=== PATIENT | male | born 1970 | race Caucasian/White ===

== ENCOUNTER 2023-11-24 08:55 | Outpatient (CLI) | payer BC, SELFPAY ==
--- NOTE | 2023-11-24 | ECG_ITS ---
Measurements Intervals [place] Rate: 69 P: 67 MT: 241 QRS: 82 QRSD: 106 T: 49 QT: 398 QTc: 427 Interpretive Statements SINUS RHYTHM WITH FIRST DEGREE AV BLOCK BORDERLINE ECG NO PREVIOUS ECG AVAILABLE FOR COMPARISON Electronically Signed On 11-24-2023 16:36:54 CDT by Severo Mathur D.O.
== END 2023-11-24 08:56 | disposition home or self-care (01) ==
PROVIDERS: PCP Family Medicine; Visit Provider Nurse Practitioner
DX: Z01.818 Encounter for other preprocedural examination (principal); I44.0 Atrioventricular block, first degree
CPT/HCPCS: 93005

== ENCOUNTER 2024-12-22 22:12 | Emergency (ER) | payer BC, SELFPAY ==
--- NOTE | ~2024-12-22 | CT_ITS ---
CT ANGIOGRAM NECK AND HEAD History: Painless vision loss. Technique: Axial noncontrast imaging of the brain was performed. Serial spiral axial images through t he head and neck were then obtained during arterial phase IV injection of 100 cc of Omnipaque 350. 3- D postprocessing and MIP images were then reconstructed on the remote workstation. Dose reduction kathie hnique was used on this scan by utilizing automated exposure control and iterative reconstruction kathie hnique. The dose-length product (DLP) was 1805.85 mGy-cm. CTA neck findings: Bilateral vertebral arteries are patent. Bilateral common carotid, internal carot id, external carotid arteries are patent. No large vessel occlusion or stenosis. No aneurysm. The pro ximal right internal carotid artery demonstrates 0% stenosis relative to the normal distal artery lum en diameter. The proximal left internal carotid artery demonstrates 0% stenosis relative to the david l distal artery lumen diameter. Extensive mediastinal lymphadenopathy noted, partially imaged. CTA head findings: Distal vertebral arteries, basilar artery, and posterior cerebral arteries are pat ent. Distal internal carotid arteries, middle cerebral arteries, and anterior cerebral arteries are p atent. No large vessel occlusion or stenosis. No aneurysm. Axial noncontrast imaging of the brain is unremarkable. No acute infarct, intracranial hemorrhage, or mass lesion seen. No mass effect or midline shift. Oliveros-white differentiation intact. The ventricles and subarachnoid spaces are nondilated. Paranasal sinuses and mastoid air cells are clear. Calvarium intact. Impression: No significant vascular abnormality seen. Extensive mediastinal lymphadenopathy, nonspecific. Correlate for sarcoid, other inflammatory/reactiv e lymph nodes, versus any possibility of lymphoma or other metastatic disease. Reviewed, dictated and finalized at location . Impression: No significant vascular abnormality seen. Extensive mediastinal lymphadenopathy, nonspecific. Correlate for sarcoid, othe r inflammatory/reactive lymph nodes, versus any possibility of lymphoma or othe r metastatic disease.
--- OUTSIDE RECORDS SUMMARY | 2024-12-22 22:14 | XMS_ITS | Continuity of Care Document ---
Author Name [facility] Organization [facility] Care Team Providers Care Baseball Coach Name Role Phone [facility] Unavailable Unavailable Encounters Combined list of: 1) Encounters from Department of Veterans Affairs facilities going backup to the last 18 months, not all [facility] inpatient encounters are included; 2) Encounters from the Department of Defense facilities going backup to 280 months. Location Location Details Encounter Type Encounter Number Reason For Visit Attending Provider ADM Date DC Date Status Disposition Source [facility] Outpatient Encounter [id number] 01/11 [facility]
[2024-12-22 22:16] VITALS: BP 126/73; PULSE 72; RESP 16; TEMP 36.6; O2SAT 98
[2024-12-23] VITALS (22 sets, daily range): BP systolic 122–154; BP diastolic 76–90; PULSE 68; RESP 16; TEMP 36.6; O2SAT 96–100
--- NOTE | 2024-12-23 01:57 | ECG_ITS ---
Test Date: 2024-12-23 02:08:17 Measurements Intervals [place] Rate: 62 P: 26 SC: 233 QRS: 77 QRSD: 101 T: 52 QT: 412 QTc: 419 Interpretive Statements SINUS RHYTHM WITH FIRST DEGREE AV BLOCK BORDERLINE ECG No previous ECG available for comparison Electronically Signed On 12-23-2024 06:11:29 CDT by Severo Mathur D.O.
[2024-12-23 02:11] LABS: Basophils Absolute Auto 0.1 K/mm3 (0.0-0.1); Basophils Percent Auto 1.3 % (0.2-1.2); Eosinophils Absolute Auto 0.1 K/mm3 (0-0.3); Eosinophils Percent Auto 2.1 % (0-4.4); Hematocrit 39.1 % (42.0-52.0); Hemoglobin 13.5 g/dL (14.0-18.0); Immature Granulocyte Absolute 0.01 K/mm3 (0.00-0.031); Immature Granulocyte Percent A 0.2 % (0-0.5); Lymphocytes Percent Auto 19.1 % (18.3-44.2); Mean Corpuscular HGB Conc 34.5 g/dl (32-36); Mean Corpuscular Hemoglobin 29.7 pg (26-34); Mean Corpuscular Volume 85.9 fl (80-100); Mean Platelet Volume 8.6 fl (7.4-10.4); Monocytes Absolute Auto 0.6 K/mm3 (0.1-0.6); Monocytes Percent Auto 11.1 % (2.6-8.5); Neutrophils Absolute Auto 3.5 K/mm3 (1.3-6.7); Neutrophils Percent Auto 66.2 % (45.5-73.1); Platelet Count Result 191 k/mm3 (150-375); Red Blood Count 4.55 M/mm3 (4.6-6.20); Red Cell Distribution Width 12.3 % (11.5-14.5); White Blood Count 5.2 K/mm3 (4.5-10.0)
--- NOTE | 2024-12-23 02:16 | ED_ITS ---
HPI - Eye Problem General Chief complaint: Eye Problems Stated complaint: lost vision in left eye Time Seen by Provider: 12/23/24 01:53 History of Present Illness HPI Narrative: 54-year-old male with no pertinent past medical history presenting to the emergency depart with transient vision loss in his left eye. Patient was mowing grass at about 6:30 p.m. when he knows that his left eye completely lost vision for a brief period of time. Over the span of 15 minutes he regained vision is left eye and describes a curtain being drawn up back open and now he has full vision. This has never happened before. 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 Denies any fever, chills, nausea, vomiting. No trauma or injury. No foreign body sensation in the eye. No pain with extraocular movements. Was otherwise in his normal state of health. Related Data Allergies Allergy/AdvReac Type Severity Reaction Status Date / Time aspirin Allergy Unknown Vomiting Verified 12/22/24 22:16 Review of Systems 2 Review of Systems: As reviewed above in HPI Exam 2 Narrative: GENERAL: [Well-appearing, well-nourished, and in no acute distress.] HEAD: [Normocephalic, atraumatic.] EYES: [PERRLA and EOMI.] ENT: Nares clear, no rhinorrhea or epistaxis. Mucous membranes moist. NECK: Supple. CHEST: [Clear to auscultation. No respiratory distress.] HEART: [Regular rate and rhythm]. No murmur heard. [Normal peripheral pulses.] ABDOMEN: [Soft, nondistended], [nontender], [No rigidity or guarding] EXTREMITIES: Normal range of motion. [No edema.] SKIN: Warm, dry, no rash. NEURO: [No focal deficits]. Alert and oriented [x3.] PSYCH: [Normal mood and affect.] Course Vital Signs Vital signs: Vital Signs Temperature 36.6 C 12/22/24 22:16 Pulse Rate 72 12/22/24 22:16 Respiratory Rate 16 12/22/24 22:16 Blood Pressure 126/73 12/22/24 22:16 Pulse Oximetry 98 12/22/24 22:16 Oxygen Delivery Room Air 12/22/24 22:16 Temperature 36.6 C 12/22/24 22:16 Pulse Rate 72 04/28/25 22:16 Respiratory Rate 16 12/22/24 22:16 Blood Pressure 132/80 12/23/24 04:02 Pulse Oximetry 99 12/23/24 04:20 Oxygen Delivery Room Air 12/22/24 22:16 MDM - Eye Problem MDM Narrative Medical decision making narrative: 54-year-old male with no pertinent past medical history aside from occasional migraine headaches. He presents to the emergency depart with transient visual loss in his left eye. 6:30 p.m. was when his vision went completely black as left eye all the sudden while he was mowing grass. Patient states that over the next 15 minutes he regained full vision in his left eye and feels like it was like a curtain being drawn open. No trauma or injury. No pain with extraocular movements. No fever, chills, headache, nausea, vomiting. Normal vital signs and unremarkable clinical examination at bedside. Pupils are equal reactive, extraocular movements are intact without any pain with movement. Given his historical features it sounds like patient experienced an episode of amaurosis fugax which will have to be evaluated for potential neurologic or cardioembolic versus ocular process. Broad workup was ordered including CT head, CT angiography of the head neck, basic laboratory studies, CBC, CMP, EKG. Patient remains asymptomatic at this time and placed on cardiac cath lab radiology technologist and pulse oximetry. Patient's workup shows no significant findings on his laboratory assessment and CT angiography without any acute findings. I discussed the case with Ophthalmology with Dr. Hernandez at [facility] who were concerned that this could represent did TIA and does sound like amaurosis fugax based on history. This is a vision threatening diagnosis. They recommended MRI, A1c, lipid panel and echocardiogram. Recommended ED to ED transfer for time critical diagnosis. Spoke to the accepting ER physician Dr. Sims and made them aware of patient's transfer and clinical status. Currently is asymptomatic and has normal vital signs. Ambulance services were contacted and transportation arranged to [facility] emergency department. Patient and family members were made aware of the plan and comfortable with transfer at this time. Medical Records Attestation: I reviewed the patient's medical records. Lab Data Attestation: I reviewed the patient's lab results. 12/23/24 02:05 12/23/24 02:05 Labs: Lab Results 12/23/24 Range/Units 02:05 WBC 5.2 (4.5-10.0) K/mm3 RBC 4.55 L (4.6-6.20) M/mm3 Hgb 13.5 L (14.0-18.0) g/dL Hct 39.1 L (42.0-52.0) % MCV 85.9 (80-100) fl MCH 29.7 (26-34) pg MCHC 34.5 (32-36) g/dl RDW 12.3 (11.5-14.5) % Plt Count 191 (150-375) k/mm3 MPV 8.6 (7.4-10.4) fl Immature Gran % (Auto) 0.2 (0-0.5) % Neut % (Auto) 66.2 (45.5-73.1) % Lymph % (Auto) 19.1 (18.3-44.2) % Assumption % (Auto) 11.1 H (2.6-8.5) % Eos % (Auto) 2.1 (0-4.4) % Baso % (Auto) 1.3 H (0.2-1.2) % Lymph # (Auto) 1.00 (0.9-3.2) K/mm3 Assumption # (Auto) 0.6 (0.1-0.6) K/mm3 Eos # (Auto) 0.1 (0-0.3) K/mm3 Baso # (Auto) 0.1 (0.0-0.1) K/mm3 Abs Immat Gran (auto) 0.01 (0.00-0.031) K/mm3 Absolute Neuts (auto) 3.5 (1.3-6.7) K/mm3 Absolute Nucleated RBC 0.000 (0.0-0.012) K/mm3 Nucleated RBC % 0.0 (0.0-0.2) % PT 13.5 (11.1-14.7) Seconds INR 1.0 APTT 27.3 (22.3-36.8) Seconds Sodium 139 (137-145) mmol/L Potassium 3.7 (3.4-5.0) mmol/L Chloride 101 (98-107) mmol/L Carbon Dioxide 29 (22-30) mmol/L Anion Gap 9 (4-12) mmol/L BUN 16 (9-20) mg/dL Creatinine 1.25 (0.7-1.3) mg/dL Estim Creat Clear Calc 65 ml/min Estimated GFR 60 (59 - ) Glucose 87 (65-110) mg/dL Calcium 8.7 (8.4-10.2) mg/dL Total Bilirubin 0.6 (0.2-1.3) mg/dL AST 35 (17-59) U/L ALT 49 (6-50) U/L Alkaline Phosphatase 55 (38-126) U/L Total Protein 7.0 (6.3-8.2) g/dL Albumin 4.3 (3.5-5.1) g/dL Imaging Data Attestation: I personally reviewed and interpreted this imaging study as follows: My impression: Impressions Head/Neck CTA 12/23/24 06:17 Impression: No significant vascular abnormality seen. Extensive mediastinal lymphadenopathy, nonspecific. Correlate for sarcoid, other inflammatory/reactive lymph nodes, versus any possibility of lymphoma or other metastatic disease. Critical Care Time Critical Care Time Critical Care Time: Yes Total Critical Care Time: 36 Discharge Plan Discharge Clinical Impression: Amaurosis fugax of left eye Patient Disposition: Acute Care Hospital Condition: Stable Patient Language: Armenian Follow-up/Referrals: Liat,Sushant Blas MD [Primary Care Provider] - Time of Disposition: 06:35
[2024-12-23 02:21] LABS: Prothrombin Time 13.5 Seconds (11.1-14.7)
[2024-12-23 02:22] LABS: Alanine Aminotransferase 49 U/L (6-50); Albumin Level 4.3 g/dL (3.5-5.1); Alkaline Phosphatase 55 U/L (38-126); Anion Gap 9 mmol/L (4-12); Aspartate Amino Transferase 35 U/L (17-59); Bilirubin,Total 0.6 mg/dL (0.2-1.3); Blood Urea Nitrogen 16 mg/dL (9-20); Calcium 8.7 mg/dL (8.4-10.2); Carbon Dioxide 29 mmol/L (22-30); Chloride 101 mmol/L (98-107); Estimated CRCL calculation 65 ml/min; Estimated Glomerular Filt Rate 60; Glucose 87 mg/dL (65-110); Partial Thromboplastin Time 27.3 Seconds (22.3-36.8); Potassium 3.7 mmol/L (3.4-5.0); Sodium 139 mmol/L (137-145)
--- OUTSIDE RECORDS SUMMARY | 2024-12-23 02:27 | XMS_ITS | Continuity of Care Document ---
Author Name [facility] Organization [facility] Care Team Providers Care Transcript Evaluator Name Role Phone [facility] Unavailable Unavailable Encounters [...] ADM Date DC Date Status Disposition Source [facility] Outpatient Encounter [id number] 01/11 [facility]
--- NOTE | 2024-12-23 06:45 | PC.NURSE ---
RN report to Haley @ [facility] ED
== END 2024-12-23 09:33 | disposition short-term general hospital (02) ==
PROVIDERS: Emergency Provider Student in an Organized Health Care Education/Training Program; PCP Family Medicine
DX: G45.3 Amaurosis fugax (principal); I44.0 Atrioventricular block, first degree; R59.1 Generalized enlarged lymph nodes
CPT/HCPCS: 36415; 70496; 70498; 80053; 85025; 85610; 85730; 93005; 99285; Q9967

== ENCOUNTER 2025-07-07 11:38 | Outpatient (CLI) | payer BC, SELFPAY ==
--- NOTE | 2025-07-07 | ECG_ITS ---
Test Date: 2025-07-07 12:07:28 Measurements Intervals [place] Rate: 65 P: 67 MA: 207 QRS: 84 QRSD: 104 T: 64 QT: 398 QTc: 416 Interpretive Statements SINUS RHYTHM Compared to ECG 12/23/2024 02:08:17 First degree AV block no longer present Electronically Signed On 07-07-2025 18:06:46 PE TEACHER by Yobany Magana M.D.
--- NOTE | ~2025-07-07 | XR_ITS ---
EXAMINATION: XR chest 2V, 07/07/2025 11:51 OIL AGENT HISTORY: Encounter for other preprocedural examination COMPARISON: No comparisons available. Technique: 2 views obtained. Findings: The lungs are clear, no effusion. No pneumothorax. Heart is normal size. Mediastinal and hilar contours are within normal limits. Bony thorax no acute abnormality. Impression: No acute cardiopulmonary abnormality. Reviewed, dictated and finalized at location P. AGENT Impression: No acute cardiopulmonary abnormality.
--- OUTSIDE RECORDS SUMMARY | 2025-07-07 12:15 | XMS_ITS | Encounter Summary ---
Author Organization [facility] Address [address] [place] [address] Care Team Providers Care Issue Clerk Name Role Phone Sushant Josue MD Primary Care Provider [phone] Encounter Details Date Type Department Care Team (Late st Contact Info) Description 12/23/2024 Ophth Exam [facility] - Ophthalmology [address] [place] [phone] Nelia Burgess MD [address] [facility] [place] [phone] Social History Tobacco Use Types Packs/Day Years Used Date Smoking Tobacco: Never Assessed Sex and Gender Information Value Date Recorded Sex Assigned at Not on file Legal Sex Male 5:08 AM CDT Gender Identity Not on file Sexual Orientation Not on file documented as of this encounter Functional Status documented as of this encounter Plan of Treatment Not on file documented as of this encounter Visit Diagnoses Not on filedocumented in this encounter Care Teams Issue Clerk Relationship Specialty Start Date End Date Sushant Josue MD [address] [place] [address] PCP - General Family Medicine 12/23/24 documented as of this encounter
--- OUTSIDE RECORDS SUMMARY | 2025-07-07 12:15 | XMS_ITS | Clinical Summary ---
Author Organization [email or web address] Address [address] [place] [address] Care Team Providers Care Vallez Filter Operator Name Role Phone Sushant Josue MD Primary Care Provider [phone] Source Comments [email or web address],non-owned Affiliates and Associated Physician Practices is amultiple site organization consisting of ambulatory clinics and hospital sitesin [place], [place], [place] and [place]. This disclosure is being madepursuant to the Care Everywhere program and may not contain all information available regarding this patient. Last updated 18.[email or web address] Allergies Active Allergy Reactions Criticality Noted Date Comments Aspirin Vomiting 12/23/2024 Medications * Be aware that medications may not be up to date on this document. Alwaysverify current medications with the patient. atorvastatin (Lipitor) 40 MG tablet Take 1 (one) tablet by mouth at bedtime for 30 days 30 tablet 12/23/2024 Active Active Problems Problem Noted Date Diagnosed Date Transient vision loss due to light 12/23/2024 Intractable migraine with aura without status mi grainosus 12/23/2024 Ocular migraine 12/23/2024 Social History Tobacco Use Types Packs/Day Years Used Date Smoking Tobacco: Never Assessed Sex and Gender Information Value Date Recorded Sex Assigned at Not on file Legal Sex Male 5:08 AM CDT Gender Identity Not on file Sexual Orientation Not on file Last Filed Vital Signs Vital Sign Reading Time Taken Comments Blood Pressure 129/86 12/23/2024 6:16 PM CDT Pulse 78 12/23/2024 11:04 AM CDT Temperature 36.9 C (98.4 F) 12/23/2024 10:15 AM CDT Respiratory Rate 15 12/23/2024 11:04 AM CDT Oxygen Saturation 99% 12/23/2024 6:16 PM CDT Inhaled Oxygen Concentration - - Weight 84.8 kg (187 lb) 12/23/2024 10:15 AM CDT Height 182.9 cm (6') 12/23/2024 10:15 AM CDT Body Mass Index 25.36 12/23/2024 10:15 AM CDT Plan of Treatment Health Maintenance Due Date Last Done Comments COLOGUARD (AGES 45-75) - COL ON CA SCREENING 1968 COLON MONITORING 1968 COLONOSCOPY - COLON CA SCREENING 1968 CT COLONOGRAPHY - COLON CA SCREENING 1968 Colorectal Cancer Screening 1968 FIT - COLON CA SCREENING 1968 FLEX SIG - COLON CA SCREENING 1968 HIV SCREENING 1983 HEPATITIS C SCREENING 09/04/1986 DTAP/TDAP/TD VACCINES (1 - Tdap) 1987 HEPATITIS B VACCINE (1 of 3 - 19+ 3-dose series) 1987 PNEUMOCOCCAL VACCINE 50+ (1 of 1 - PCV) 2018 ZOSTER VACCINE (1 of 2) 2018 DEPRESSION SCREENING 08/27/2024 COVID-19 VACCINE (1 - 2023-2 5 season) 2025 INFLUENZA VACCINE (#1) 2025 SCREENING FOR DIABETES 12/24/2027 , 12/23/2024 LIPID TESTING 12/23/2029 12/23/2024 HIB VACCINE Aged Out No longer eligi ble based on patient's age to complete this topic HPV VACCINE Aged Out No longer eligi ble based on patient's age to complete this topic MENINGOCOCCAL (Group B) VACCINE SHARED DECISION-MAKING Aged Out No longer eligible based on patient's age to complete this topic MENINGOCOCCAL GROUPS A/C/Y/W VACCINE Aged Out No longer eligible b ased on patient's age to complete this topic Procedures Procedure Name Priority Date/Time Associated Diagnosis Comments COMPREHENSIVE METABOLIC PANEL STAT 12/23/2024 11:36 AM CDT LIPID PROFILE STAT 12/23/2024 11:36 AM CDT from Last 3 Months or Most Recently Relevant to Health Maintenance Results * (ABNORMAL) COMPREHENSIVE METABOLIC PANEL (12/23/2024 11:36 AM [facility]) BUN 13 7 - 26 mg/dL 12/23/2024 12:20 PM [facility] Creatinine 1.15 0.71 - 1.16 mg/dL 12/23/2024 12:20 PM [facility] Sodium 138 136 - 145 mmol/L 12/23/2024 12:20 PM [facility] Potassium 3.7 3.5 - 4.5 mmol/L 12/23/2024 12:20 PM [facility] Chloride 103 98 - 107 mmol/L 12/23/2024 12:20 PM [facility] CO2 27 22 - 29 mmol/L 12/23/2024 12:20 PM [facility] Glucose 94 70 - 99 mg/dL 12/23/2024 12:20 PM [facility] Calcium 8.8 8.4 - 10.2 mg/dL 12/23/2024 12:20 PM [facility] Protein Total 7.0 6.0 - 8.3 g/dL 12/23/2024 12:20 PM [facility] Albumin 4.2 3.4 - 5.0 g/dL 12/23/2024 12:20 PM [facility] Bilirubin Total 0.9 0.2 - 1.2 mg/dL 12/23/2024 12:20 PM [facility] Alkaline Phosphatase 58 40 - 150 U/L 12/23/2024 12:20 PM [facility] ALT 42 5 - 55 U/L 12/23/2024 12:20 PM [facility] AST 25 5 - 34 U/L 12/23/2024 12:20 PM [facility] Anion Gap 8 6 - 16 12/23/2024 12:20 PM [facility] BUN/Creatinine Ratio 11 7 - 23 12/23/2024 12:20 PM [facility] Osmolality Calculated 286 275 - 295 mOsm/kg 12/23/2024 12:20 PM [facility] Albumin/Globulin Ratio 1.5 1.1 - 2.3 12/23/2024 12:20 PM [facility] eGFR by CKD-EPI 75(L) >=90 mL/min/1.7 3 m2 12/23/2024 12:20 PM [facility] Blood BLOOD SPECIMEN / Unknown Venipuncture / Unknown 12/23/2024 11:36 AM CDT 12/23/2024 11:47 AM CDT Michael Brian MD LAB - CHEMISTRY ORDERABLES Fi nal Result Performing Organization Address [facility]/ZIP Co de Phone Number [facility] [address] [place] [id number], [facility] [phone] * (ABNORMAL) LIPID PROFILE (12/23/2024 11:36 AM CDT) Cholesterol Total 192 <200 mg/dL 12/23/2024 12:20 PM [facility] HDL 39(L) >40 mg/dL 12/23/2024 12:20 PM [facility] Comment: ATP III Classification of HDL Cholesterol: <40 mg/dL: Considered a major risk factor. >60 mg/dL: Considered a negative risk factor. LDL Calculated 129(H) <100 mg/dL 12/23/2024 12:20 PM [facility] Comment: ATP III Classification of LDL Cholesterol: <100 mg/dL: Optimal 100 - 129 mg/dL: Near Optimal/Above Optimal 130 - 159 mg/dL: Borderline High 160 - 189 mg/dL: High >190 mg/dL: Very High Triglycerides 119 <150 mg/dL 12/23/2024 12:20 PM [facility] Comment: ATP III Classification of Triglycerides: <150 mg/dL: Normal 150 - 199 mg/dL: Borderline High 200 - 400 mg/dL: High >500 mg/dL: Very High Blood BLOOD SPECIMEN / Unknown Venipuncture / Unknown 12/23/2024 11:36 AM CDT 12/23/2024 11:47 AM CDT Michael Brian MD LAB - CHEMISTRY ORDERABLES Fi nal Result [facility] [address] [place] [address], [facility] [phone] from Last 3 Months or Most Recently Relevant to Health Maintenance Insurance ANTH Care Teams Vallez Filter Operator Relationship Specialty Start Date End Date Sushant Josue MD [address] [place] [address] PCP - General Family Medicine 12/23/24
== END 2025-07-07 11:39 | disposition home or self-care (01) ==
PROVIDERS: PCP Family Medicine; Visit Provider Nurse Practitioner
DX: M50.30 Other cervical disc degeneration, unspecified cervical region (principal); Z01.818 Encounter for other preprocedural examination; F17.200 Nicotine dependence, unspecified, uncomplicated
CPT/HCPCS: 71046; 93005